=== PATIENT | male | born 1970 | race Caucasian/White ===

== ENCOUNTER 2020-04-24 07:33 | Outpatient (CLI) | payer BC, SELFPAY ==
--- NOTE | ~2020-04-24 | CT_ITS ---
EXAMINATION: CT orbit BI w con DATE: 04/24/2020 08:38 INDICATION: Ocular pain. TECHNIQUE: Computed tomography (CT) of the facial bones and maxillofacial region was performed with 1 00 mL Omnipaque 350 intravenous contrast. Automated exposure control and iterative reconstruction ryan hnique were employed. The dose-length product was 1362.00 mGy-cm. COMPARISON: None. FINDINGS: The ocular globes, extraocular muscles, and optic nerves are normal. There is no abnormal m ass. There is mild mucosal thickening in the paranasal sinuses. IMPRESSION: 1. Normal orbits. Reviewed, dictated and finalized at location A. IMPRESSION: 1. Normal orbits.
--- NOTE | ~2020-04-24 | CT_ITS ---
EXAMINATION: CT brain wo/w con DATE: 04/24/2020 08:37 INDICATION: Ocular pain TECHNIQUE: Computed tomography (CT) of the head was performed without and subsequently with 100 cc Om nipaque 350 intravenous contrast. The mA was adjusted according to patient size. Iterative reconstruc tion technique was employed. Exam dose: 1362.00 mGy-cm total exam DLP. COMPARISON: None FINDINGS: No intracranial mass lesion or hemorrhage or cerebrovascular accident is evident. No midlin e shift or mass effect. Normal ventricular size. There is mild calcification of the carotid siphon in ternal carotid arteries. No subdural or epidural hematoma. No fracture or bone destruction of the cranial vault. Included paranasal sinuses and mastoid air cells are unremarkable except for 1.9 cm mucous retention cyst or polyp of left maxillary sinus and a small mucus retention cyst along the posterolateral wall of the right sphenoid sinus. IMPRESSION: No significant intracranial abnormality Reviewed, dictated and finalized at Location [facility]. Reviewed, dictated and finalized at location A.
== END 2020-04-24 07:34 | disposition home or self-care (01) ==
PROVIDERS: PCP Internal Medicine
DX: H57.12 Ocular pain, left eye (principal)
CPT/HCPCS: 70470; 70481; Q9967

== ENCOUNTER 2023-08-25 09:23 | Outpatient (CLI) | payer BC, SELFPAY | END 2023-08-25 09:24 | disposition home or self-care (01) | PROVIDERS: PCP Internal Medicine; Visit Provider Nurse Practitioner Family | DX: R11.0 Nausea (principal); K21.9 Gastro-esophageal reflux disease without esophagitis | CPT/HCPCS: 36415; 86003 ==

== ENCOUNTER → 2025-05-30 11:13 | Outpatient (REF) | payer BC, SELFPAY ==
--- NOTE | 2025-05-30 11:13 | S_PTH ---
PATIENT: Bassam Moreira LOC: [facility] U#:[id number] AGE/SX: 55/M ROOM: RE05/30/[address]: Bryn Avelar MD : [id number] BED: DIS: SPEC #: [id number] RECD: 05/30/25 12:54 STATUS: BISHNU RETere #: [id number] REBECCA: 05/30/25 11:[address]: Bryn Avelar DEPT: [facility] Surgical RECD BY: Miranda Miranda ENTERED: 05/30/25 12:55 SP TYPE: Surgical OTHR DR: Cristobal FuentesMD Tissues: A - Skin Procedures: Hematoxylin and Eosin Stain Gross and Microscopic Level 4
== END ==
LOC: ANHLAB 11:13
PROVIDERS: PCP Internal Medicine; Visit Provider Plastic Surgery
DX: C44.612 Basal cell carcinoma of skin of right upper limb, including shoulder (principal)
CPT/HCPCS: 88305